=== PATIENT | male | born 1980 | race Caucasian/White ===

== ENCOUNTER → 2018-05-13 08:41 | Outpatient (CLI) | payer SELFPAY | PROVIDERS: Family Provider Family Medicine; PCP Family Medicine | DX: A69.20 Lyme disease, unspecified (principal) | CPT/HCPCS: 36415 ==

== ENCOUNTER → 2018-06-11 09:50 | Outpatient (CLI) | payer OTHER, SELFPAY ==
[2018-06-11 10:59] LABS: Absolute Lymphocyte Count 1.37 X10^3/ul (0.83-4.51); Absolute Neutrophil Count 3.6 X10^3/uL (2.0-7.7); Basophil# 0.02 X10^3/uL; Basophil% 0.4 % (0-1); Eosinophil# 0.07 X10^3/uL; Eosinophils% 1.3 % (0-5); Hematocrit 45.1 % (40-54); Hemoglobin 15.6 g/dl (13.0-16.5); Lymphocyte # 1.37 X10^3/ul (4.0); Lymphocyte % 24.6 % (19-41); Mean Corp Hgb Conc 34.6 g/gl (32-36); Mean Corpuscular Hgb 28.8 pg (27.0-32.0); Mean Corpuscular Volume 83.4 fL (80-94); Mean Platelet Vol. 10.9 fl (6.2-12.0); Monocyte# 0.47 X10^3/uL; Monocyte% 8.4 % (0-10); Neutrophil # 3.59 X10^3/uL (2.7-7.7); Neutrophil % 64.4 % (47-70); Platelet Count 178 K/mm3 (150-450); RBC Distribution Width CV 13.1 % (11.6-14.6); RBC Distribution Width SD 39.7 fl (35.1-43.9); Red Blood Count 5.41 M/mm3 (4.6-6.2); White Blood Count 5.6 K/mm3 (4.4-11.0)
[2018-06-11 11:00] LABS: POSITIVE COUNT NO; POSITIVE DIFFERENTIAL NO; POSITIVE MORPHOLOGY NO
[2018-06-11 11:31] LABS: Insulin 17.7 mU/L (2.6-37.6)
[2018-06-11 11:33] LABS: Hemoglobin A1c 5.3 % (4.2-6.3)
[2018-06-11 12:11] LABS: AST(SGOT) 21 U/L (15-37); Alanine Aminotransfer ALT/SGPT 42 U/L (16-61); Albumin, Serum 3.8 g/dL (3.2-5.0); Alkaline Phosphatase 57 U/L (45-117); Anion Gap 8 (5-15); BUN 9 mg/dL (7-18); BUN/Creat Ratio 9.4 RATIO (10-20); Calcium,Total 9.1 mg/dL (8.5-10.1); Chloride 108 mmol/L (98-107); Creatinine, Serum 0.96 mg/dL (0.70-1.30); EST Glomerular Filtration Rate 93 mL/min (>60); Est Glom Filt Rate - Afr Amer 113 mL/min (>60); Globulin 3.7 g/dL (2.2-4.2); Glucose 81 mg/dL (74-106); Potassium 4.1 mmol/L (3.5-5.1); Protein, Total 7.5 g/dL (6.4-8.2); Sodium Level 138 mmol/L (136-145)
[2018-06-13 14:07] LABS: B. henselae IgG Negative titer (Neg:<1:320); B. henselae IgM Negative titer (Neg:<1:100); B. quintana IgG Negative titer (Neg:<1:320)
[2018-06-14 13:04] LABS: B. quintana IgM Negative titer (Neg:<1:100); CMV Acute Antibody IgM < 30.0 AU/mL (0.0-29.9); CMV Antibody IgG < 0.60 U/mL (0.00-0.59)
== END ==
PROVIDERS: Family Provider Family Medicine; PCP Family Medicine
DX: A69.20 Lyme disease, unspecified (principal); E11.00 Type 2 diabetes mellitus with hyperosmolarity without nonketotic hyperglycemic-hyperosmolar coma (NKHHC); E55.9 Vitamin D deficiency, unspecified; B25.9 Cytomegaloviral disease, unspecified; A77.0 Spotted fever due to Rickettsia rickettsii; A77.9 Spotted fever, unspecified; A44.0 Systemic bartonellosis; B60.0 Babesiosis
CPT/HCPCS: 36415; 80053; 83036; 83525; 85025; 86611; 86644; 86645

== ENCOUNTER → 2018-08-02 08:02 | Outpatient (CLI) | payer OTHER, SELFPAY ==
[2018-08-02 09:05] LABS: Hemoglobin A1c 5.5 % (4.2-6.3)
[2018-08-02 09:06] LABS: Free T3 3.6 pg/mL (2.18-3.98)
[2018-08-02 09:11] LABS: Homocysteine 10.1 umol/L (3.2-10.7)
[2018-08-02 09:19] LABS: Insulin 19.1 mU/L (2.6-37.6)
[2018-08-02 09:33] LABS: Fibrinogen 253 mg/dl (203-444)
== END ==
PROVIDERS: Family Provider Family Medicine; PCP Family Medicine
DX: A69.20 Lyme disease, unspecified (principal); E72.11 Homocystinuria; E11.00 Type 2 diabetes mellitus with hyperosmolarity without nonketotic hyperglycemic-hyperosmolar coma (NKHHC); E55.9 Vitamin D deficiency, unspecified; E03.2 Hypothyroidism due to medicaments and other exogenous substances
CPT/HCPCS: 36415; 82306; 83036; 83090; 83525; 84481; 85384

== ENCOUNTER → 2021-02-23 10:12 | Outpatient (CLI) | payer OTHER, SELFPAY ==
[2021-02-23 12:20] LABS: Erythrocyte Sedimentation Rate 5 mm/hr (0-20)
[2021-02-23 12:22] LABS: Absolute Lymphocyte Count 1.05 X10^3/uL (0.83-4.51); Absolute Neutrophil Count 3.3 X10^3/uL (2.0-7.7); Basophil# 0.02 X10^3/uL; Basophil% 0.4 % (0-1); Eosinophil# 0.06 X10^3/uL; Eosinophils% 1.2 % (0-5); Hemoglobin 15.4 g/dL (13.0-16.5); Lymphocyte # 1.05 X10^3/ul (0.83-4.51); Lymphocyte % 21.7 % (19-41); Mean Corp Hgb Conc 32.8 g/dL (32-36); Mean Corpuscular Hgb 28.1 pg (27.0-32.0); Mean Corpuscular Volume 85.6 fL (80-94); Mean Platelet Vol. 11.5 fl (6.2-12.0); Monocyte# 0.38 X10^3/uL; Monocyte% 7.9 % (0-10); NRBC Flagged by Analyzer 0 % (0-5); Neutrophil # 3.28 X10^3/uL (2.7-7.7); Neutrophil % 67.8 % (47-70); Platelet Count 200 K/mm3 (150-450); RBC Distribution Width CV 12.9 % (11.6-14.6); RBC Distribution Width SD 39.9 fl (35.1-43.9); Red Blood Count 5.49 M/mm3 (4.6-6.2); White Blood Count 4.8 K/mm3 (4.4-11.0)
[2021-02-23 12:47] LABS: AST(SGOT) 21 U/L (15-37); Alanine Aminotransfer ALT/SGPT 40 U/L (16-61); Anion Gap 6 (5-15); BUN 10 mg/dL (7-18); BUN/Creat Ratio 11.6 RATIO (10-20); CRP < 2.90 mg/L (0.0-3.0); Calcium,Total 9.6 mg/dL (8.5-10.1); Chloride 109 mmol/L (98-107); Cholesterol 179 mg/dL (200); Creatinine, Serum 0.86 mg/dL (0.70-1.30); EST Glomerular Filtration Rate 105 mL/min (>60); Est Glom Filt Rate - Afr Amer 127 mL/min (>60); GGTP 20 U/L (15-85); Glucose 95 mg/dL (74-106); High Density Lipoprotein 41 mg/dL; LDH 181 U/L (87-241); Sodium Level 141 mmol/L (136-145); Triglycerides 145 mg/dL; Very Low Density Lipoprotein 29 mg/dL (5-40)
[2021-02-24 13:49] LABS: Alkaline Phosphatase 56 U/L (45-117)
== END ==
PROVIDERS: Family Medicine; PCP Family Medicine; Referring Provider Family Medicine; Visit Provider Family Medicine
DX: B88.2 Other arthropod infestations (principal)
CPT/HCPCS: 36415; 80048; 80061; 82977; 83615; 84075; 84450; 84460; 85025; 85652; 86140